=== PATIENT | female | born 1975 ===

== ENCOUNTER → 2018-02-14 | Outpatient (CLI) | payer OTHER ==
[~2018-02-14] MED LIST: CATHETER FLUSH 10 ML SYR IV PRN; DOCU100C37 PO; HYDR-34 PO; IBUP-1773 PO; SIME80TA16 PO
--- NOTE | 2018-02-14 18:17 | Diagnostic Imaging Report ---
EXAMINATION: Hepatobiliary scan with ejection fraction. INDICATION: Epigastric pain. TECHNIQUE: This study was performed following administration of 4.64 mCi of 99m-technetium Choletec. One can of Ensure was also administered at 60 minutes after the injection. COMPARISON: There are no previous nuclear medicine or ultrasound studies available for comparison. FINDINGS: There is uptake of the radiotracer by the gallbladder before 30 minutes. This would weigh against the diagnosis of acute cholecystitis. There is also extension of the radiotracer into the small bowel indicating that the common bile duct is not obstructed. The ejection fraction is 34.9% (normal greater than 35%). IMPRESSION: 1. There is no evidence for acute cholecystitis, and the common bile duct is not obstructed. 2. The ejection fraction is at the lowest end of normal. Dictated by: Dictated on workstation # [id number]
== END ==
LOC: CARD 12:11
PROVIDERS: ATTEND Nurse Practitioner Community Health
DX: R10.13 Epigastric pain (principal)
CPT/HCPCS: 78227

== ENCOUNTER 2018-05-27 11:20 | Outpatient (CLI) | payer OTHER ==
[~2018-05-27] VITALS: Ht 156.2 cm; Wt 73.0 kg
[~2018-05-27 11:20] MED LIST changes: -CATHETER FLUSH 10 ML SYR IV PRN
[2018-05-27 12:09] LABS: BASOPHILS % (AUTO) 0 % (0-10); EOSINOPHILS # (AUTO) 0.1 10^3/uL (0.0-0.3); EOSINOPHILS % (AUTO) 1 % (0-10); HEMATOCRIT 41 % (35-52); HEMOGLOBIN 13.9 G/DL (11.5-16.0); LYMPHOCYTES # (AUTO) 1.4 X 10^3 (1.0-4.0); LYMPHOCYTES % (AUTO) 27 % (12-44); MEAN CORPUSCULAR HEMOGLOBIN 31 PG (25-34); MEAN CORPUSCULAR HGB CONC 34 G/DL (32-36); MEAN CORPUSCULAR VOLUME 91 FL (80-99); MEAN PLATELET VOLUME 11.1 FL (7.4-10.4); MONOCYTES # (AUTO) 0.4 X 10^3 (0.0-1.0); MONOCYTES % (AUTO) 8 % (0-12); NEUTROPHILS # (AUTO) 3.2 X 10^3 (1.8-7.8); NEUTROPHILS % (AUTO) 63 % (42-75); PLATELET COUNT 206 10^3/uL (130-400); RED CELL DISTRIBUTION WIDTH 12.3 % (10.0-14.5); WHITE BLOOD COUNT 5.1 10^3/uL (4.3-11.0)
[2018-05-27 12:22] VITALS: BP 124/67
[2018-05-27] MEDS ORDERED: CYCL5TAB PO (12:29)
[2018-05-27] MEDS ORDERED: LEVO5TAB28 PO (12:29)
[2018-05-27] MEDS ORDERED: RANI-515 PO (12:29)
[2018-05-27] MEDS ORDERED: PANT40TA3 PO (12:29)
== END 2018-05-27 11:55 | disposition home or self-care (01) ==
LOC: PREOP 11:20
PROVIDERS: ATTEND Surgery
DX: Z01.812 Encounter for preprocedural laboratory examination (principal); Z11.2 Encounter for screening for other bacterial diseases; K82.8 Other specified diseases of gallbladder
CPT/HCPCS: 36415; 85025; 87081

== ENCOUNTER 2018-06-19 06:55 | Day surgery (SDC) | payer OTHER ==
[~2018-06-19] VITALS: Ht 156.2 cm; Wt 73.0 kg
[~2018-06-19 06:55] MED LIST changes: +CYCL5TAB PO; +LEVO5TAB28 PO; +PANT40TA3 PO; +RANI-515 PO
[2018-06-19 07:15] VITALS: BP 114/66
[2018-06-19] MEDS: LACTATED RINGERS 1,000 ML IV PRN ×3 (07:25→10:30)
[2018-06-19] MEDS ORDERED: ceFAZolin 2 GM IV Premixed 50 ML IV ONE (07:45)
[2018-06-19] MEDS ORDERED: BUP/EPI 0.5% 1:200,000 (SENSORCAINE) 30 ML VIAL ONE (07:48)
[2018-06-19] MEDS ORDERED: LIDOCAINE 1% INJ 20 ML 20 ML VIAL ONE (07:49)
[2018-06-19] MEDS ORDERED: ONDANSETRON 4 MG/2 ML (SDV) Z0FRAN ONE ×2 (07:51→12:36)
[2018-06-19] MEDS ORDERED: GLYCOPYRROLATE 0.2 MG/ML (ROBINUL) 2 ML VIAL ONE (07:51)
[2018-06-19] MEDS ORDERED: ROCURONIUM 10 MG/ML 5 ML SYRINGE IV ONE (07:51)
[2018-06-19] MEDS ORDERED: SEVOFLURANE (ULTANE) 15 ML INHAL SOLN ONE (07:51)
[2018-06-19] MEDS ORDERED: fentaNYL INJECTION 100 MCG/2 ML AMP ONE ×2 (07:51→09:05)
[2018-06-19] MEDS ORDERED: LIDOCAINE PF 2% 5 ML (XYLOCAINE) VIAL ONE (07:51)
[2018-06-19] MEDS ORDERED: NEOSTIGMINE 1 MG/ML 5 ML SYRINGE ONE (07:51)
[2018-06-19] MEDS ORDERED: ceFAZolin 2 GM IV Premixed 50 ML ONE (07:51)
[2018-06-19] MEDS ORDERED: FAMOTIDINE 20MG/2ML IV (PEPCID) ONE (07:51)
[2018-06-19] MEDS ORDERED: proPOfol 200 MG/20 ML (DIPRIVAN) VIAL IV ONE (07:51)
[2018-06-19] MEDS ORDERED: MIDAZOLAM 2 MG/2 ML (VERSED) VIAL ONE (07:51)
[2018-06-19] MEDS ORDERED: DEXAMETHASONE 10 MG/ML (DECADRON) 1 ML VIAL ONE (07:51)
[2018-06-19] MEDS ORDERED: FAMOTIDINE 20MG/2ML IV (PEPCID) IV ONE (08:00)
[2018-06-19] MEDS ORDERED: LACTATED RINGERS 1,000 ML IV ONE (09:27)
--- NOTE | 2018-06-19 09:29 | Progress Note-Post Operative ---
Post-Operative Progess Note Surgeon (s)/Drainlayer (s) Surgeon MADELYN RUBIO DO Drainlayer: Dr. Minaya Pre-Operative Diagnosis biliary dysknesia Post-Operative Diagnosis same Procedure & Operative Findings Date of Procedure 06/19/18 Procedure Performed/Findings lap trevor c ioc Anesthesia Type gen Estimated Blood Loss Estimated blood loss (mL): min Specimens/Packing Specimens Removed gallbladder MADELYN RUBIO DO Jun 19, 2018 09:29
[2018-06-19] MEDS ORDERED: DOCU-143 PO (09:34)
[2018-06-19] MEDS ORDERED: ACHD5005 PO (09:34)
--- NOTE | 2018-06-19 09:36 | Discharge Inst-Simple/Standard ---
Discharge Inst-Standard Discharge Medications New, Converted or Re-Newed RX: RX on Chart Patient Instructions/Follow Up Plan of Care/Instructions/FU: 2 weeks Corry Activity as Tolerated: Yes Discharge Diet: Regular Diet Other Inst to Patient Follow up Appt: Make appointment for 2 weeks. Instructions: No lifting greater than 10 pounds. No strenuous activity. May shower in 24 hours, no tub bath or soaking. Use incentive spirometer at home as directed. No Smoking Skin/Wound Care: You have special glue over incisions it will fall off on its own. Symptoms to Report: Appetite Changes, Extremity Discoloration, Numbness/Tingling, Swelling Increased , Bleeding Excessive, Eyesight Changes, Pain Increased, Urine Color Change, Constipation(Persistent), Fever over 101 degree F, Pain/Pressure in chest, Urinating Difficulty, Cough Up/Vomit Blood, Heart Beat Irreg/Pounding, Pain/ Pressure in jaw, Vaginal Bleeding Increase, Cramps in feet or legs, Lightheadedness, Pain/Pressure in shoulder, Diarrhea(Persistent), Memory Changes Suddenly, Questions/Concerns, Weight gain consecutive days, Dizziness/ Fainting, Nausea/Vomiting, Shortness of Breath, Weight gain over 2 pounds. If eyes or skin turn yellow notify physician. If questions or concerns contact your physician Or seek help at emergency department. MADELYN RUBIO DO Jun 19, 2018 09:36
[2018-06-19] MEDS ORDERED: morphine INJ 10 MG/ML 1ML (SYR OR VIAL) IVP ONE (09:45)
[2018-06-19] MEDS ORDERED: MEPERIDINE (DEMEROL) INJ 50 MG/ML IVP ONE (09:45)
[2018-06-19] MEDS ORDERED: fentaNYL INJECTION 100 MCG/2 ML AMP IVP ONE (09:45)
[2018-06-19] MEDS ORDERED: ONDANSETRON 4 MG/2 ML (SDV) Z0FRAN IVP PRN (09:45)
[2018-06-19 10:50] VITALS: BP 130/77
[2018-06-19 10:55] VITALS: BP 130/77
[2018-06-19] MEDS ORDERED: HYDROcodone/APAP 5 MG/325 MG (LORTAB) TAB ONE (11:13)
[2018-06-19] MEDS ORDERED: HYDROcodone/APAP 5 MG/325 MG (LORTAB) TAB PO PRN (11:15)
[2018-06-19 11:20] VITALS: BP 137/78
[2018-06-19 11:50] VITALS: BP 141/77
[2018-06-19] MEDS ORDERED: ONDANSETRON 4 MG/2 ML (SDV) Z0FRAN IVP ONE (12:40)
--- NOTE | 2018-06-19 13:37 | Anesthesia-General Post-Op ---
General Patient Condition Mental Status/LOC: Same as Preop Cardiovascular: Satisfactory Nausea/Vomiting: Absent Respiratory: Satisfactory Pain: Controlled Complications: Absent Post Op Complications Complications None Follow Up Care/Instructions Patient Instructions None needed. Anesthesia/Patient Condition Patient Condition Patient is doing well, no complaints, stable vital signs, no apparent adverse anesthesia problems. CHEYANNE HENRY DO Jun 19, 2018 13:37
--- NOTE | 2018-06-19 17:04 | OPERATIVE REPORT ---
DATE OF SERVICE: 06/19/2018 PREOPERATIVE DIAGNOSES: Epigastric abdominal pain and biliary dyskinesia. POSTOPERATIVE DIAGNOSES: Epigastric abdominal pain and biliary dyskinesia. PROCEDURE: Laparoscopic cholecystectomy with intraoperative cholangiogram. SURGEON: Christian Wheatley DO REHEAT FURNACE OPERATOR: Larry Minaya DO to assist in retraction, dissection and closure. ANESTHESIA: General. ESTIMATED BLOOD LOSS: Minimal. COMPLICATIONS: None. INDICATIONS: The patient is a 43-year-old female with epigastric abdominal pain and symptoms and findings consistent with biliary dyskinesia. She understands risks and benefits of procedure and wished to proceed with procedure. Consent was signed on the chart. DESCRIPTION OF PROCEDURE: The patient was taken to the operating suite. She was prepped and draped in sterile fashion. Timeout was performed. A midline incision was made just above the umbilicus 12 mm. Cutter was used to dissect down to the fascia, scored, grasped, elevated and the abdomen was entered. An 0 Vicryl was placed in a [id number] fashion for closure at the end of the case. A balloon trocar was inserted in the abdomen. Pneumoperitoneum was achieved. Under direct visualization of the laparoscope, a 5 mm trocar was placed in the subxiphoid region and two 5 mm trocars were placed in the right upper quadrant. Gallbladder was grasped and elevated. The cystic duct and cystic artery were dissected out. Clips were placed on the proximal and distal portion of the cystic artery and a clip was placed on the distal portion of the cystic duct. The duct was then partially transected. Arrow catheter was inserted in the duct and cholangiogram was performed. There were no filling defects. Contrast made its way into the duodenum. The catheter was then removed. Clips were placed on the proximal portion of the cystic duct and the duct and artery were then completely transected. Hook cautery was used to dissect the gallbladder from the gallbladder fossa achieving hemostasis. Once removed, it was placed in an Endobag and removed through the 12 mm trocar site. The abdomen was then irrigated and suctioned with copious amounts of irrigation. Hemostasis had been achieved. The trocars were then removed. The 0 Vicryl was placed earlier was then tied closing the fascial defect with a 12 mm port. The skin was then closed using 4-0 Monocryl in a subcuticular fashion. The areas were then washed and dried and Skin Affix was placed over the incisions. The patient tolerated the procedure well without any complications. She was taken to the recovery room in stable condition. Job ID: [id number] DocumentID: [id number] Dictated Date: 06/19/2018 14:12:16 Wet Finisher Wool Date: 06/19/2018 17:04:27 Dictated By: DO SARAH BAILEY
--- NOTE | 2018-06-19 19:16 | Diagnostic Imaging Report ---
INDICATION: Laparoscopic cholecystectomy. Total number of fluoroscopic images saved: 33 Total fluoroscopy time: 7 seconds Total contrast: 3 cc Omnipaque 300 FINDINGS: Multiple intraoperative image intensifier views of the right upper abdominal quadrant were obtained during intraoperative cholangiogram. Images provided show contrast filling the intra-and extrahepatic biliary ductal systems. No distinct intraluminal filling defects are seen. There is no extravasation of contrast. Contrast empties into the small bowel, as expected. Please note, interpreting radiologist was not present during the procedure. IMPRESSION: 1. Fluoroscopic guidance provided during cholangiogram, as described above. Dictated by: Dictated on workstation # [id number]
== END 2018-06-19 12:55 | disposition home or self-care (01) ==
LOC: SDC 06:55
PROVIDERS: ATTEND Surgery
DX: K81.1 Chronic cholecystitis (principal); R56.9 Unspecified convulsions; K21.9 Gastro-esophageal reflux disease without esophagitis; Z79.899 Other long term (current) drug therapy
CPT/HCPCS: 88304; 94664

== ENCOUNTER → 2019-05-05 | Outpatient (CLI) | payer OTHER ==
[~2019-05-05] MED LIST changes: +ACHD5005 PO; +DOCU-143 PO; -RANI-515 PO; +RANI-609 PO
== END | disposition home or self-care (01) ==
LOC: PREOP 05:31
PROVIDERS: ATTEND Surgery
DX: Z01.818 Encounter for other preprocedural examination (principal)

== ENCOUNTER 2019-05-12 07:49 | Day surgery (SDC) | payer OTHER ==
[2019-05-12] MEDS ORDERED: LACTATED RINGERS 1,000 ML IV ONE (07:50)
[2019-05-12] MEDS ORDERED: HURRICAINE EXT TUBE (BENZOCAINE) XX PRN (08:00)
[2019-05-12] MEDS ORDERED: LACTATED RINGERS 1,000 ML IV STA (08:00)
--- NOTE | 2019-05-12 08:29 | Progress Note-Pre Operative ---
Pre-Operative Progress Note H&P Reviewed The H&P was reviewed, patient examined and no changes noted. Date Seen by Provider: May 12, 2019 Time Seen by Provider: : Date H&P Reviewed: May 12, 2019 Time H&P Reviewed: : Pre-Operative Diagnosis: epigastric abd pain melena gerd MADELYN RUBIO DO May 12, 2019 08:29
[2019-05-12 08:31] VITALS: BP 116/69
[2019-05-12] MEDS ORDERED: PROPOFOL INJECTION 50 ML IV ONE (09:03)
[2019-05-12] MEDS ORDERED: MIDAZOLAM 2 MG/2 ML (VERSED) VIAL ONE (09:03)
[2019-05-12] MEDS ORDERED: FLUT9.9S NS (09:04)
[2019-05-12] MEDS ORDERED: CETI10TA17 PO (09:04)
[2019-05-12] MEDS ORDERED: RANI-609 PO (09:04)
[2019-05-12] MEDS ORDERED: SIME80TA16 PO (09:04)
[2019-05-12] MEDS ORDERED: OMEP20CA18 PO (09:04)
[2019-05-12] MEDS ORDERED: HURRICAINE EXT TUBE (BENZOCAINE) ONE (09:14)
[2019-05-12 10:15] VITALS: BP 114/68
[2019-05-12 10:20] VITALS: BP 108/62
--- NOTE | 2019-05-12 10:23 | Progress Note-Post Operative ---
Post-Operative Progess Note Surgeon (s)/Manager Bench (s) Surgeon MADELYN RUBIO DO Manager Bench: na Pre-Operative Diagnosis epigastric abd pain melena gerd Post-Operative Diagnosis gastritis, questionable parasites colon Procedure & Operative Findings Date of Procedure 05/12/19 Procedure Performed/Findings egd c biopsies, colonoscopy Anesthesia Type per front desk agent Estimated Blood Loss Estimated blood loss (mL): na Specimens/Packing Specimens Removed antrum, ge, stool for ova/parasite MADELYN RUBIO DO May 12, 2019 10:23
--- NOTE | 2019-05-12 10:24 | Discharge Inst-Simple/Standard ---
Discharge Inst-Standard Patient Instructions/Follow Up Plan of Care/Instructions/FU: 2 weeks Corry Activity as Tolerated: Yes Discharge Diet: Regular Diet MADELYN RUBIO DO May 12, 2019 10:24
[2019-05-12 10:25] VITALS: BP 108/62
[2019-05-12 10:55] VITALS: BP 106/64
[2019-05-12 11:05] VITALS: BP 106/64
--- NOTE | 2019-05-12 13:40 | Anesthesia-General Post-Op ---
MAC Patient Condition Mental Status/LOC: Same as Preop Cardiovascular: Satisfactory Nausea/Vomiting: Absent Respiratory: Satisfactory Pain: Controlled Complications: Absent Post Op Complications Complications None Follow Up Care/Instructions Patient Instructions None needed. Anesthesiology Discharge Order Discharge Order Patient is doing well, no complaints, stable vital signs, no apparent adverse anesthesia problems. No complications reported per nursing. JACK MEJIAS CRNA May 12, 2019 13:40
--- NOTE | 2019-05-12 14:00 | OPERATIVE REPORT ---
DATE OF SERVICE: 05/12/2019 PREOPERATIVE DIAGNOSES: Epigastric abdominal pain, melena, gastroesophageal reflux disease. POSTOPERATIVE DIAGNOSES: Gastritis, questionable parasite of colon. PROCEDURE: EGD with biopsies, colonoscopy. SURGEON: Madelyn Wheatley DO ANESTHESIA: Per MA[employer]. ESTIMATED BLOOD LOSS: None. COMPLICATIONS: None. SPECIMENS: Antrum, GE junction and stool for ova and parasite. INDICATIONS: The patient is a 44-year-old female with epigastric abdominal pain, melena and GERD symptoms. She understands risks and benefits of procedure and wished to proceed with procedure. Consent was signed in the chart. DESCRIPTION OF PROCEDURE: The patient was taken to the endoscopy suite, placed in left lateral recumbent position. Timeout was performed. Scope was inserted in mouth, down the esophagus, stomach and into the duodenum without difficulty. There were no polyps, masses or ulcerations in the duodenum. Scope was slowly retracted back into the stomach where it was further insufflated. Gastritis appearance. Biopsy of the antrum was obtained. Scope was retroflexed noting no other pathology. Scope was returned to its normal position, slowly withdrawn to distal esophagus. Biopsy of the GE junction was obtained. No polyps, masses or ulcerations. Scope was then slowly retracted back until completely removed. Digital rectal exam was performed. There were no palpable polyps, masses or ulcerations. Scope was inserted in the rectum and advanced all the way to cecum with minimal difficulty. Prep was adequate. Scope was then slowly retracted back. There were no polyps, masses or ulcerations within the cecum, ascending, transverse, descending and sigmoid colon. Throughout most of colon, some parasite appearing worm like white strands were visualized. These were suctioned and sent for evaluation. Once in the rectum, scope was retroflexed noting no other pathology. Scope was returned to its normal position, slowly withdrawn until completely removed. The patient tolerated procedure well without any complications. She was taken to recovery room in stable condition. RECOMMENDATIONS: The patient will follow up in the office in 2 weeks to discuss pathology results and further recommendations pending these results. Job ID: [id number] DocumentID: [id number] Dictated Date: 05/12/2019 10:26:45 Sour Bleaching Pleater Date: 05/12/2019 13:59:01 Dictated By: MADELYN WHEATLEY DO [facility]
== END 2019-05-12 11:06 | disposition home or self-care (01) ==
LOC: ENDO 07:49
PROVIDERS: ATTEND Surgery
DX: K29.70 Gastritis, unspecified, without bleeding (principal)
CPT/HCPCS: 87328; 87329

== ENCOUNTER → 2019-08-24 | Outpatient (CLI) | payer OTHER ==
[~2019-08-24] MED LIST changes: +CETI10TA17 PO; +FLUT9.9S NS; +OMEP20CA18 PO
--- NOTE | 2019-08-24 11:12 | Diagnostic Imaging Report ---
PROCEDURE: MRI right joint lower extremity without contrast. TECHNIQUE: Multiplanar, multisequence non contrast-enhanced MRI of the right lower extremity was accomplished. INDICATION: Bilateral knee pain COMPARISON: None FINDINGS: No acute fracture or dislocation is seen in the right knee. Alignment appears normal. There is a small right knee joint effusion. The articular cartilage in the patellofemoral compartment demonstrates mild surface irregularity with no large full-thickness defects. The cartilage in the medial and lateral compartments demonstrate no full-thickness defects. There is a horizontal tear of the medial meniscus at the posterior horn extending into the body. The lateral meniscus appears intact. The anterior and posterior cruciate ligaments are intact. The medial collateral ligament and the lateral collateral ligamentous complex are intact. The extensor mechanism is intact. The medial and lateral retinacula appear intact. The soft tissues about the right knee are otherwise unremarkable. IMPRESSION: 1. Horizontal tear of the medial meniscus. 2. Small right knee joint effusion. Dictated by: Dictated on workstation # [id number]
--- NOTE | 2019-08-24 12:35 | Diagnostic Imaging Report ---
PROCEDURE: MRI left joint lower extremity without contrast. TECHNIQUE: Multiplanar, multisequence non contrast-enhanced MRI of the left lower extremity was accomplished. INDICATION: Bilateral knee pain. COMPARISON: None FINDINGS: No acute fracture or dislocation is seen in the left knee. Alignment appears normal. There is a small left knee joint effusion. There is surface irregularity and fissuring of the articular cartilage in the patellofemoral compartment. There is also mild thinning and surface irregularity and articular cartilage in the medial compartment. No full-thickness defects are seen in the lateral compartment. There is minimal irregularity at the free edge of the posterior medial meniscus. The lateral meniscus appears intact. The anterior and posterior cruciate ligaments are intact. The medial collateral ligament is intact. The lateral collateral ligamentous complex appears intact. The extensor mechanism is intact. The medial and lateral retinacula are intact. There is a fluid collection posterior to the distal femoral metaphysis measuring 1.5 x 1.0 x 1.6 cm. IMPRESSION: 1. Minimal irregularity at the free edge of the posterior horn of the medial meniscus in the left knee. No ligament tear is seen. 2. Mild surface irregularity and fissuring of the articular cartilage. No large full-thickness defect is seen. 3. Small left knee joint effusion. Dictated by: Dictated on workstation # [id number]
== END ==
LOC: RAD 09:08
PROVIDERS: ATTEND Nurse Practitioner
DX: S83.242A Other tear of medial meniscus, current injury, left knee, initial encounter (principal); S83.241A Other tear of medial meniscus, current injury, right knee, initial encounter
CPT/HCPCS: 73721

== ENCOUNTER → 2019-09-25 | Outpatient (CLI) | payer OTHER ==
[~2019-09-25] MED LIST changes: +CATHETER FLUSH 10 ML SYR IV PRN; +HOLD METFORMIN - RECEIVED CONTRAST 20 ML VIAL IV SCH; +IOHEXOL 350 MG/ML 100 ML (OMNIPAQUE 350) VIAL IV ONE; +NS 100 ML (IVPB) BAG IV ONE
--- NOTE | 2019-09-25 12:37 | Diagnostic Imaging Report ---
PROCEDURE: CT abdomen with contrast only. TECHNIQUE: Multiple contiguous axial images were obtained through the abdomen after the administration of intravenous contrast. Auto Exposure Controls were utilized during the CT exam to meet ALARA standards for radiation dose reduction. INDICATION: Right upper quadrant pain wrapping around to the right posterior abdomen. COMPARISON: No prior studies are available for comparison. FINDINGS: The lung bases are clear. The liver demonstrates diffuse low density consistent with hepatic steatosis. No discrete liver mass is identified. The gallbladder is surgically absent. No biliary ductal dilatation is seen. The pancreas and spleen are unremarkable. No adrenal mass is identified. There are several small densities in both kidneys which may represent nonobstructing calculi. No hydronephrosis is seen. Aorta is nonaneurysmal. The visualized bowel loops are normal caliber. No obstruction is seen. There is no ascites. Bony structures appear nonacute. IMPRESSION: 1. Hepatic steatosis. 2. Probable nonobstructing bilateral nephrolithiasis. 3. No other significant abnormality is detected. Dictated by: Dictated on workstation # [id number]
== END ==
LOC: RAD 09:31
PROVIDERS: ATTEND Nurse Practitioner Community Health
DX: K76.0 Fatty (change of) liver, not elsewhere classified (principal)
CPT/HCPCS: 74160

== ENCOUNTER 2021-12-27 06:22 | Outpatient (CLI) | payer SELFPAY ==
[~2021-12-27] VITALS: Ht 152.4 cm; Wt 73.5 kg
[~2021-12-27 06:22] MED LIST changes: -CATHETER FLUSH 10 ML SYR IV PRN; -HOLD METFORMIN - RECEIVED CONTRAST 20 ML VIAL IV SCH; -IOHEXOL 350 MG/ML 100 ML (OMNIPAQUE 350) VIAL IV ONE; -NS 100 ML (IVPB) BAG IV ONE; -PANT40TA3 PO; +PANT40TA52 PO
== END 2022-01-04 13:20 | disposition home or self-care (01) ==
LOC: PREOP 06:22
PROVIDERS: ATTEND Surgery
DX: Z01.818 Encounter for other preprocedural examination (principal)

== ENCOUNTER 2022-01-09 09:51 | Day surgery (SDC) | payer OTHER ==
[2022-01-09] VITALS (7 sets, daily range): BP systolic 108–135; BP diastolic 56–80
[~2022-01-09] VITALS: Ht 157 cm; Wt 73.5 kg
[2022-01-09] MEDS ORDERED: LACTATED RINGERS 1,000 ML IV STA (09:54)
[2022-01-09] MEDS ORDERED: HURRICAINE EXT TUBE (BENZOCAINE) XX PRN (10:00)
[2022-01-09] MEDS ORDERED: MIDAZOLAM 2 MG/2 ML (VERSED) VIAL ONE (13:09)
[2022-01-09] MEDS ORDERED: PROPOFOL INJECTION 50 ML IV ONE (13:09)
[2022-01-09] MEDS ORDERED: proPOfol 200 MG/20 ML (DIPRIVAN) VIAL IV ONE (13:40)
--- NOTE | 2022-01-09 14:20 | Discharge Inst-Simple/Standard ---
Discharge Inst-Standard Patient Instructions/Follow Up Plan of Care/Instructions/FU: Follow up in [address] Wheatley Activity as Tolerated: Yes Discharge Diet: Regular Diet (high fiber diet) MADELYN WHEATLEY DO Jan 09, 2022 14:20
--- NOTE | 2022-01-09 14:56 | Anesthesia-General Post-Op ---
MAC Patient Condition Mental Status/LOC: Same as Preop Cardiovascular: Satisfactory Nausea/Vomiting: Absent Respiratory: Satisfactory Pain: Controlled Complications: Absent Post Op Complications Complications None Follow Up Care/Instructions Patient Instructions None needed. Anesthesiology Discharge Order Discharge Order Patient is doing well, no complaints, stable vital signs, no apparent adverse anesthesia problems. No complications reported per nursing. KALEE VIERA CRNA Jan 09, 2022 14:56
--- NOTE | 2022-01-09 22:00 | OPERATIVE REPORT ---
DATE OF SERVICE: 01/09/2022 PREOPERATIVE DIAGNOSES: Gastroesophageal reflux disease, epigastric abdominal pain, change in bowel habits. POSTOPERATIVE DIAGNOSES: Diverticulosis, normal esophagogastroduodenoscopy. PROCEDURE: EGD with biopsies, colonoscopy. SURGEON: Madelyn Wheatley DO ANESTHESIA: Per [employer]. ESTIMATED BLOOD LOSS: None. COMPLICATIONS: None. INDICATIONS: The patient is a 46-year-old female with epigastric abdominal pain, GERD symptoms and change in bowel habits. She understands risks and benefits of procedure and wishes to proceed. Consent was signed in the chart. DESCRIPTION OF PROCEDURE: The patient was taken to the endoscopy suite, placed in left lateral recumbent position. Timeout was performed. Scope was inserted in mouth, down the esophagus, stomach and into the duodenum without difficulty. No polyps, masses or ulcerations within the duodenum. Scope was slowly retracted back into the stomach where it was further insufflated. Biopsy of the antrum was obtained. No polyps, masses or ulcerations. Scope was retroflexed noting no other pathology. Scope was then returned to its normal position, slowly withdrawn to distal esophagus. No polyps, masses or ulcerations. Biopsy of GE junction was obtained. Scope was slowly retracted back until completely removed, noting no other pathology. Digital rectal exam was performed. No palpable polyps, masses or ulcerations. Scope was inserted in the rectum and advanced all the way to cecum with minimal difficulty. Prep was adequate. Scope was slowly retracted back. No polyps, masses or ulcerations visualized within the cecum, ascending, transverse, descending and sigmoid colon. Through the sigmoid colon, there was diverticulosis. The scope was then continuously retracted back into the rectum where it was also retroflexed, noting no other pathology. Scope was returned to its normal position, slowly withdrawn until completely removed. The patient tolerated procedure well without any complications. She was taken to recovery room in stable condition. RECOMMENDATIONS: The patient to continue on current medications. We will have her follow up on biopsies in 2 weeks. We will need repeat colonoscopy in 10 years unless family history of colon cancer or personal history of polyps, which would then be 5 years. I would recommend high fiber diet due to diverticulosis. Further recommendations pending biopsy results. Job ID: [id number] DocumentID: [id number] Dictated Date: 01/09/2022 13:52:52 Sheet Sorter Date: 01/09/2022 22:00:01 Dictated By: MADELYN WHEATLEY DO
== END 2022-01-09 14:40 | disposition home or self-care (01) ==
LOC: ENDO 09:51
PROVIDERS: ATTEND Surgery
DX: K21.9 Gastro-esophageal reflux disease without esophagitis (principal); K57.30 Diverticulosis of large intestine without perforation or abscess without bleeding; K31.9 Disease of stomach and duodenum, unspecified; Z79.899 Other long term (current) drug therapy